=== PATIENT | male | born 1975 | race Caucasian/White ===

== ENCOUNTER → 2017-08-08 | Outpatient (CLI) | payer OTHER ==
--- NOTE | 2017-08-08 15:34 | EXE ---
[place] [address] STRESS ECHOCARDIOGRAM Name: BIN CONKLIN Room: [facility]#: [id number] Admission: 08/08/17 Attend Phys: Ashvin Cabrera, Discharge: Date of : 77 Date of Service: 08/08/17 1533 Report #: [id number] THIS REPORT FOR: //name// APPROVED REPORT Study performed: 08/08/2017 11:00:26 Exam: Stress Echocardiogram Indication: Palpitations , Pre-Operative CV evaluation Patient Location: Out-Patient Stress Nurse: Amanda Tovar RN Supervising Physician: Piero Jones MD Status: routine Ht: 6 ft 4 in HR: 83 bpm BP: 96/71 mmHg Rhythm: NSR Procedure The patient underwent an Exercise Stress Test using the Chapito Protocol. Blood pressure, heart rate, and EKG were monitored. An Echocardiogram was performed by wind commissioning technician in four stages in quad fashion. At peak stress, four selected images were obtained and placed side by side with resting images for comparison. Echo Enhancing Agent Indication: Endocardial border delineation Agent(s) / Amount(s) Used: Optison 8 cc Stress Test Details Stress Test: Exercise stress testing was performed using a Chapito protocol. HR Resting HR: 83 bpm Max Heart Rate (APMHR): 180 bpm Max HR Achieved: 164 bpm Target HR (85% APMHR): 153 bpm % of APMHR: 91 Recovery HR: 93 bpm HR response to stress: Normal HR response to stress BP Resting BP: 96/71 mmHg Max BP: 143/78 mmHg Recovery BP: 101/58 [place] [address] STRESS ECHOCARDIOGRAM Name: RUBINBIN Room: [facility]#: [id number] Admission: 08/08/17 Attend Phys: Ashvin Cabrera, Discharge: Date of : 77 Date of Service: 08/08/17 1533 Report #: [id number] Resting ECG: Sinus Rhythm, normal EKG Stress ECG: Sinus Tachycardia ST Change: None Arrhythmia: None Recovery ECG: Sinus Rhythm, normal EKG Recovery ST Change: None Recovery Arrhythmia: None Clinical Reason for Termination: Maximal effort Exercise duration: 8 min sec Highest Stage Achieved: 2.5 mph at 16% grade. Exercise capacity: 8.24 METs The patient tolerated standard Chapito protocol exercise without difficulty. He had no chest pain. Stress ECG Conclusion The baseline 12-lead electrocardiogram showed sinus rhythm without ST segment depression or T-wave inversion. EKGs obtained during and post exercise showed sinus rhythm and sinus tachycardia with no significant ST or T wave changes when compared to baseline. There were no stress-induced arrhythmias. Pre-Stress Echo The resting Echocardiogram showed normal left ventricular contractility with an estimated Ejection Fraction of about 55-60%. Post-Stress Echo The stress Echocardiogram showed normal left ventricular contractility with an estimated Ejection Fraction of about >70%. Clinical No clinical or ECG evidence for ischemia. Conclusion Clinical Response: Non-ischemic Exercise Capacity: Average Stress ECG Response: Non-ischemic Stress Echo Images: Non-ischemic The left ventricle is normal in size and wall thickness in both the rest and stress images. Other Information Technically limited study due [place] [address] STRESS ECHOCARDIOGRAM Name: RUBINBIN Room: [facility]#: [id number] Admission: 08/08/17 Attend Phys: Ashvin Cabrera, Discharge: Date of : 77 Date of Service: 08/08/171532 Report #: [id number] <Conclusion> The left ventricle is normal in size and wall thickness in both the rest and stress images. <ELECTRONICALLY SIGNED> By: Piero Jones MD, FACC 08/08/17 153 [id number] Piero Jones MD, FACC /INF
== END ==
LOC: M.CRD 09:56
DX: I49.9 Cardiac arrhythmia, unspecified (principal)